=== PATIENT | male | born 1960 | race Caucasian/White ===

== ENCOUNTER 2018-06-16 08:23 | Day surgery (SDC) | payer BC ==
[~2018-06-16 08:23] MED LIST: Lactated Ringers 1,000 ML IV SCH; Lidocaine 1%/Sod Bicarbonate in NS 8.4% 1 ML Syringe IDERM PRN; Sodium Chloride 0.9% 10 ML Syringe FLUSH PRN
--- NOTE | 2018-06-16 09:14 | PCM.PREANE ---
Preanesthetic Assessment - Procedure Proposed Procedure: colonoscopy - Anesthesia/Transfusion/Family Hx Anesthesia History: Prior Anesthesia Without Reaction Family History of Anesthesia Reaction: No Transfusion History: No Prior Transfusion(s) - Review of Systems General: No Symptoms Pulmonary: No Symptoms Cardiovascular: No Symptoms Gastrointestinal: No Symptoms Neurological: No Symptoms Other: Reports: None - Physical Assessment NPO Status Date: 06/15/18 NPO Status Time: 00:00 Pulse: 70 O2 Sat by Pulse Oximetry: 94 Respiratory Rate: 16 Blood Pressure: 153/95 Temperature: 98.2 F Height: 5 ft 9 in Weight: 131 kg ASA Class: 2 Mental Status: Alert & Oriented x3 Airway Class: Mallampati = 1 Dentition: Reports: Normal Dentition, Partial (upper) Thyro-Mental Finger Breadths: 3 Mouth Opening Finger Breadths: 3 ROM/Head Extension: Full Lungs: Clear to Auscultation, Normal Respiratory Effort Cardiovascular: Regular Rate, Regular Rhythm - Allergies Allergies/Adverse Reactions: Allergies Allergy/AdvReac Type Severity Reaction Status Date / Time No Known Allergies Allergy Verified 06/15/18 10:29 - Blood Blood Available: No - Anesthesia Plan Beta Marcelina: Metoprolol Med Last Dose Date: 06/16/18 (n) Med Last Dose Time: 09:20 - Acknowledgements Anesthesia Type Planned: MAC Pt an Appropriate Candidate for the Planned Anesthesia: Yes Alternatives and Risks of Anesthesia Discussed w Pt/Guardian: Yes Pt/Guardian Understands and Agrees with Anesthesia Plan: Yes PreAnesthesia Questionnaire HEENT History: Reports: Otitis Media, Other (See Below) Other HEENT History: wears glasses, upper partial Cardiovascular History: Reports: CAD, High Cholesterol, Hypertension, Other ( See Below) Other Cardiovascular History: chest pain Respiratory History: Reports: None Gastrointestinal History: Reports: Colon Polyp, Gastritis, Other (See Below) Other Gastrointestinal History: hematuria, small bowel obstruction Genitourinary History: Reports: Other (See Below) Other Genitourinary History: erectile dysfunction [employer] History: Reports: None Musculoskeletal History: Reports: Other (See Below) Other Musculoskeletal History: rotator cuff tear, right foot toe fracutre, muscle weakness Neurological History: Reports: None Psychiatric History: Reports: Other (See Below) Other Psychiatric History: insomnia Endocrine/Metabolic History: Reports: Obesity/BMI 30+ Hematologic History: Reports: Iron Deficiency Immunologic History: Reports: None Oncologic (Cancer) History: Reports: None Dermatologic History: Reports: None - Past Surgical History Head Surgeries/Procedures: Reports: None Cardiovascular Surgical History: Reports: None Respiratory Surgical History: Reports: None GI Surgical History: Reports: Bariatric Procedure, Cholecystectomy, Colonoscopy , Hernia Repair/Other Female Surgical History: Reports: None Male Surgical History: Reports: None Endocrine Surgical History: Reports: None Neurological Surgical History: Reports: None Musculoskeletal Surgical History: Reports: Other (See Below) Other Musculoskeletal Surgeries/Procedures:: right hand surgery, right foot surgery Oncologic Surgical History: Reports: None Dermatological Surgical History: Reports: None - SUBSTANCE USE Smoking Status *Q: Former Smoker (quit a couple months ago) Tobacco Use Within Last Twelve Months: Cigarettes Second Hand Smoke Exposure: Yes Days Per Week of Alcohol Use: 1 Number of Drinks Per Day: 2 Total Drinks Per Week: 2 Recreational Drug Use History: No - HOME MEDS Home Medications: Home Meds Aspirin [[place] Aspirin] 81 mg PO DAILY 06/15/18 [History] Cholecalciferol (Vitamin D3) [Vitamin D3] 1,000 unit PO DAILY 06/15/18 [History] Ferrous Sulfate [Iron] 325 mg PO DAILY 06/15/18 [History] Lisinopril 40 mg PO DAILY 06/15/18 [History] Metoprolol Tartrate [Lopressor] 50 mg PO BID 06/15/18 [History] Potassium 99 mg PO DAILY 06/15/18 [History] Pravastatin [Pravachol] 40 mg PO DAILY 06/15/18 [History] Sildenafil Citrate [Sildenafil] 100 mg PO ASDIRECTED PRN 06/15/18 [History] Suvorexant [Belsomra] 20 mg PO BEDTIME 06/15/18 [History] Vitamin B Complex 1 cap PO DAILY 06/15/18 [History] amLODIPine Besylate [Norvasc] 5 mg PO DAILY 06/15/18 [History] - CURRENT (IN HOUSE) MEDS Current Meds: Current Medications Lactated Ringer's (Ringers, Lactated) 1,000 mls @ 125 mls/hr IV ASDIRECTED DAO Stop: 06/16/18 23:00 Lidocaine/Sodium Bicarbonate (Buffered Lidocaine 1% In Ns 8.4%) 0.25 ml IDERM ONETIME PRN PRN Reason: Prior to IV Start Stop: 06/16/18 18:00 Sodium Chloride (Saline Flush) 10 ml FLUSH ASDIRECTED PRN PRN Reason: Keep Vein Open Stop: 06/16/18 18:00
[2018-06-16] MEDS ORDERED: Metoprolol Tartrate 50 MG Tab PO SCH (09:45)
[2018-06-16] MEDS ORDERED: Propofol 200 MG/20 ML SDV ONE ×3 (09:58→10:48)
[2018-06-16] MEDS ORDERED: fentaNYL 100 MCG/2 ML SDV ONE (10:10)
[2018-06-16] MEDS ORDERED: Labetalol 100 MG/20 ML MDV ONE (10:29)
--- NOTE | 2018-06-16 11:09 | PCM.OPNOTE ---
- General Post-Op/Procedure Note Date of Surgery/Procedure: 06/16/18 Operative Procedure(s): surveillance colonoscopy with polypectomy Findings: Intraluminal lipoma in transverse colon Polyps in cecum, transverse colon and splenic flexure Scattered small-mouthed diverticula in the sigmoid, descending and transverse colon Pre Op Diagnosis: surveillance colonoscopy for hematochezia and colon polyps Post-Op Diagnosis: same Anesthesia Technique: MAC Primary Surgeon: Lissette Guajardo Anesthesia Provider: Jesus Jett Pathology: 1. Cecal biopsy 2. Cecal polyp 3. Transverse colon polyp 4. Splenic flexure polyp Drain/Tube Comments:: none Complications: none Condition: Good
--- NOTE | 2018-06-16 11:11 | PCM48HPAN ---
Post Anesthesia Note - EVALUATION WITHIN 48HRS OF ANESTHETIC Vital Signs in Normal Range: Yes Patient Participated in Evaluation: Yes Respiratory Function Stable: Yes Airway Patent: Yes Cardiovascular Function Stable: Yes Hydration Status Stable: Yes Pain Control Satisfactory: Yes Nausea and Vomiting Control Satisfactory: Yes Mental Status Recovered: Yes
--- NOTE | 2018-06-16 11:12 | PCM.PRNOTE ---
- Free Text/Narrative Note: Operative Report Date of Surgery/Procedure: june 16, 2018 Operative Procedure: surveillance Colonoscopy to cecum with polypectomy Pre Op Diagnosis: colorectal cancer screening with hematochezia and history of colon polyps Post-Op Diagnosis: same Surgeon: Lissette Guajardo MD Anesthesia Technique: MAC Anesthesia Provider: Jesus Jett CRNA IV Fluid Replacement, Intraop: see anesthesia record Output, Urine Amount: 0cc EBL : 2 cc Findings: Intraluminal lipoma in transverse colon; Polyps in cecum, transverse colon and splenic flexure; Scattered small-mouthed diverticula in the sigmoid, descending and transverse colon Specimens: 1. Cecal biopsy 2. Cecal polyp 3. Transverse colon polyp 4. Splenic flexure polyp Indication: The patient is a 58 year-old gentleman who presented to the outpatient clinic requesting colorectal cancer screening for surveillance of previous colon polyps , as well as a history of hematochezia. We discussed the procedure of a surveillance colonoscopy including the polypectomy and biopsy. Risks of bleeding and perforation were discussed, the patient understood and wished to proceed. Written and consent was obtained. Description of the procedure: The patient was brought to the endoscopy suite and placed in the left lateral decubitus position. Appropriate monitors were applied. The patient was given MAC anesthesia. An anorectal examination was performed, revealing external skin tags. The scope was placed into the rectum and advanced to cecum with minimal difficulty requiring some abdominal pressure. The patients cecum was seen, and the ileocecal valve was identified and normal, however the cecum could not be entered due to the patient's anatomy. At this point, the scope was withdrawn, paying careful attention to the mucosa. The patient had poor bowel prep, allowing for visualization of 60-65% of the mucosa. Several small-mouthed diverticula were seen scattered throughout the sigmoid, descending and transverse colon. There was a large, pedunculated, non-obstructing mass in the transverse colon with normal mucosa, consistent with a lipoma. There were scattered polyps in the cecum, transverse colon and splenic flexure. These were biopsied with cold-biopsy forceps. The cecal polyp was incompletely removed due to it's position, and another 4-5mm cecal polyp was noted that could not be removed due to it's location. In the rectum, the scope was retroflexed and no abnormalities were noted, except for some minimal hemorrhoidal tissue. The scope was placed back in the lumen and the excess air was aspirated. The patient tolerated the procedure well. Will await pathology for timing of repeat surveillance colonoscopy. Complications: none apparent Condition: Good, transported to PACU in stable condition Lissette Guajardo MD General Surgery
== END 2018-06-16 12:15 | disposition home or self-care (01) ==
LOC: JD.SDS 08:23
PROVIDERS: ATTEND Surgery
DX: Z12.11 Encounter for screening for malignant neoplasm of colon (principal); D12.0 Benign neoplasm of cecum; D12.3 Benign neoplasm of transverse colon; K64.9 Unspecified hemorrhoids; I10 Essential (primary) hypertension; I25.110 Atherosclerotic heart disease of native coronary artery with unstable angina pectoris; N52.9 Male erectile dysfunction, unspecified; F17.210 Nicotine dependence, cigarettes, uncomplicated; E66.9 Obesity, unspecified; Z68.41 Body mass index [BMI] 40.0-44.9, adult; Z79.899 Other long term (current) drug therapy; Z98.84 Bariatric surgery status; Z98.890 Other specified postprocedural states; Z86.010 Personal history of colon polyps
CPT/HCPCS: 45380; A9270; J2704; J3010; J3490; J7120; 00812

== ENCOUNTER 2020-03-17 07:13 | Emergency (ER) | payer BC ==
[2020-03-17] MEDS ORDERED: Diltiazem 50 MG/10 ML SDV IVPUSH ONE ×4 (07:23→08:59)
--- NOTE | 2020-03-17 07:26 | EDM.PDOC ---
ED HPI GENERAL MEDICAL PROBLEM - General Chief Complaint: Cardiovascular Problem Stated Complaint: IRREGULAR HEART BEAT Time Seen by Provider: 03/17/20 07:18 Source of Information: Reports: Patient History Limitations: Reports: No Limitations - History of Present Illness INITIAL COMMENTS - FREE TEXT/NARRATIVE: 59-year-old male presents to the ED from the ECG stress suite where he was being stressed by Dr. Orr. Apparently he did fairly good for the first 5 or 6 minutes. He then went into atrial fibrillation with rapid rapid ventricular response up to 155 160. Associated dyspnea and mild central chest heaviness. Erhard lightheaded and weak. Procedure was therefore stopped and he was sent to the ED for treatment. From the sounds of things he has been having similar type episodes with palpitations which suggest paroxysmal atrial fibrillation. Denies any changes in medications. Onset: Today Onset Date: 03/17/20 Onset Time: 07:15 Duration: Minutes: Location: Reports: Chest (New onset atrial fibrillation with rapid ventricular response.) Quality: Reports: Pressure (Very mild central pressure discomfort.) Severity: Mild Improves with: Reports: Rest Worsens with: Reports: Other Context: Reports: Other (Spontaneous onset of atrial fibrillation well in the ECG suite.). Denies: Activity (Worse with exercise), Exercise, Sick Contact, Trauma Associated Symptoms: Reports: Chest Pain, Malaise, Shortness of Breath, Weakness. Denies: Confusion, Cough, cough w sputum (Chest discomfort.), Diaphoresis, Fever/Chills, Headaches, Loss of Appetite, Nausea/Vomiting, Rash, Seizure, Syncope Treatments MOLDER PIPE COVERING: Reports: Other (see below) (Particular lower extremities none.) - Related Data Allergies Allergy/AdvReac Type Severity Reaction Status Date / Time No Known Allergies Allergy Verified 03/17/20 07:28 Home Meds: Home Meds Aspirin [Day Aspirin] 81 mg PO DAILY 06/15/18 [History] Lisinopril 40 mg PO DAILY 06/15/18 [History] Metoprolol Tartrate [Lopressor] 50 mg PO BID 06/15/18 [History] Potassium 99 mg PO DAILY 06/15/18 [History] Suvorexant [Belsomra] 20 mg PO BEDTIME 06/15/18 [History] amLODIPine Besylate [Norvasc] 10 mg PO DAILY 06/15/18 [History] Albuterol [Proventil HFA] 2 puff INH Q8HR 03/17/20 [History] Aspirin/Acetaminophen/Caffeine [Excedrin Extra Strength Caplet] 1 tab PO ASDIRECTED 03/17/20 [History] Cholecalciferol (Vitamin D3) [Vitamin D3] 1,000 unit PO DAILY 03/17/20 [History] Cyanocobalamin (Vitamin B-12) [B-12] 1,000 mcg PO DAILY 03/17/20 [History] Cyclobenzaprine [Flexeril] 10 mg PO TID PRN 03/17/20 [History] Diltiazem [Dilacor XR] 240 mg PO DAILY #30 cap.er 03/17/20 [Rx] Divalproex Sodium [Divalproex Sodium ER] 500 mg PO DAILY 03/17/20 [History] Ferrous Sulfate [Iron] 325 mg PO DAILY 03/17/20 [History] Fluticasone/Salmeterol [Advair 100-50] 1 puff INH BID 03/17/20 [History] Multivitamin 1 tab PO DAILY 03/17/20 [History] tadalafiL [Tadalafil] 2.5 mg PO DAILY 03/17/20 [History] Past Medical History HEENT History: Reports: Otitis Media, Other (See Below) Other HEENT History: wears glasses, upper partial Cardiovascular History: Reports: CAD, High Cholesterol, Hypertension, Other ( See Below) Other Cardiovascular History: chest pain Respiratory History: Reports: None Gastrointestinal History: Reports: Colon Polyp, Gastritis, Other (See Below) Other Gastrointestinal History: hematuria, small bowel obstruction Genitourinary History: Reports: Other (See Below) Other Genitourinary History: erectile dysfunction [employer] D[employer] OPERATOR History: Reports: None Musculoskeletal History: Reports: Other (See Below) Other Musculoskeletal History: rotator cuff tear, right foot toe fracutre, muscle weakness Neurological History: Reports: None Psychiatric History: Reports: Other (See Below) Other Psychiatric History: insomnia Endocrine/Metabolic History: Reports: Obesity/BMI 30+ Hematologic History: Reports: Iron Deficiency Immunologic History: Reports: None Oncologic (Cancer) History: Reports: None Dermatologic History: Reports: None - Past Surgical History Head Surgeries/Procedures: Reports: None Cardiovascular Surgical History: Reports: None Respiratory Surgical History: Reports: None GI Surgical History: Reports: Bariatric Procedure, Cholecystectomy, Colonoscopy , Hernia Repair/Other Female Surgical History: Reports: None Male Surgical History: Reports: None Endocrine Surgical History: Reports: None Neurological Surgical History: Reports: None Musculoskeletal Surgical History: Reports: Other (See Below) Other Musculoskeletal Surgeries/Procedures:: right hand surgery, right foot surgery Oncologic Surgical History: Reports: None Dermatological Surgical History: Reports: None Social & Family History - Caffeine Use Caffeine Use: Reports: Coffee - Living Situation & Occupation Living situation: Reports: Occupation: Employed ED ROS GENERAL - Review of Systems Review Of Systems: See Below Constitutional: Reports: Weakness. Denies: Fever, Chills HEENT: Reports: No Symptoms Respiratory: Reports: Shortness of Breath. Denies: Wheezing, Pleuritic Chest Pain, Cough, Sputum Cardiovascular: Reports: Chest Pain, Blood Pressure Problem (Mild chest heaviness central chest with onset of atrial fib.), Dyspnea on Exertion, Edema ( Chronically lower extremities. Gets better overnight and then worsens as the day goes on as he stands for 6 to 8 hours daily), Palpitations (Recurrent palpitations). Denies: Claudication, Lightheadedness, Orthopnea Endocrine: Reports: Fatigue. Denies: High Glucose GI/Abdominal: Reports: Abdominal Pain, Diarrhea, Other (Lots of problems since gastric bypass surgery.) : Reports: Frequency Musculoskeletal: Reports: Back Pain, Joint Pain (Knees hips low back neck and shoulders at times) Skin: Reports: No Symptoms Neurological: Reports: Dizziness Psychiatric: Reports: No Symptoms (Onset of atrial fib this morning) Hematologic/Lymphatic: Reports: No Symptoms Immunologic: Reports: No Symptoms ED EXAM, GENERAL - Physical Exam Exam: See Below Exam Limited By: No Limitations General Appearance: Alert, WD/WN, Moderate Distress, Other (Obviously short of breath. Temperature is 36.1 heart rate 150 and irregular irregular. Respiratory to is 20-22. O2 sats 91% on room air BP 1 6486) Eye Exam: Bilateral Eye: Normal Inspection, PERRL Throat/Mouth: Normal Inspection, Normal Lips, Normal Oropharynx, Other Head: Atraumatic, Normocephalic Neck: Normal Inspection (Lung is slightly dry.), Supple, Full Range of Motion. No: Carotid Bruit, Lymphadenopathy (L), Lymphadenopathy (R) Cardiovascular: No Gallop, No JVD, No Murmur, No Rub, Irregularly Irregular (55/ min on the monitor.). No: Normal Peripheral Pulses Peripheral Pulses: 1+: Posterior Tibial (L) (Only the dorsal dorsalis pedis is palpable.), Posterior Tibial (R), Dorsalis Pedis (L), Dorsalis Pedis (R), 2+: Carotid (L), Carotid (R) GI/Abdominal: Abnormal Bowel Sounds (Bowel sounds are fairly quiesced sent in all 4 quadrants.), Other (Multiple surgical scars. He has had a cholecystectomy as well as a gastric bypass procedure. Morbidly obese. Abdominal girth limits ability to palpate solid organs.) Extremities: Non-Tender, Pedal Edema, Slow Capillary Refill. No: Normal Inspection Neurological: Alert, Oriented, CN II-XII Intact, Normal Cognition Psychiatric: Anxious Skin Exam: Warm, Dry, Intact, Normal Color, No Rash ED CARDIOLOGY PROCEDURES - Cardioversion Time of Cardioversion: 11:09 Indication: Atrial Fibrillation with RVR Patient Counseled: Yes Informed Consent Obtained: Yes Preparation: IV Access, Airway Management Equipment, Supplemental Oxygen Pre-Procedure Sedation: Propofol (By TECHNICAL COMMUNICATION TEACHER.) Cardioversion Energy: 100J Sync, Other (This 100 J dose did not convert him. 150) Mode: Monophasic (dose did convert him back to sinus rhythm.) Successful: Yes Number of Attempts: 2 Patient Condition Post Cardioversion: Improved Post Cardioversion EKG Reviewed: Yes (Sinus rhythm. It does exist demonstrate that he has had old anteroseptal a) EKG INTERPRETATION EKG Date: 03/17/20 Time: 07:28 Rhythm: A-Fib (The rate of 150 to 165/min) Rate (Beats/Min): 159 Micro: LAD-Left Micro Deviation (-51 degrees. Left anterior fascicular block pattern) P-Wave: Variable QRS: Other (Near Q wave 3 and aVF consider inferior wall infarction. There is a Q wave in V1 and near Q wave in V3 which is likely insignificant.) ST-T: Other (Diffuse early repolarization pattern.) QT: Prolonged EKG Interpretation Comments: Abnormal ECG Course - Vital Signs Last Recorded V/S: Last Vital Signs Temp 36.1 C 03/17/20 07:25 Pulse 150 H 03/17/20 07:25 Resp 20 03/17/20 07:25 BP 164/86 H 03/17/20 07:25 Pulse Ox 91 L 03/17/20 07:25 - Orders/Labs/Meds Orders: Active Orders 24 hr Category Date Time Status EKG Documentation Completion [RC] STAT Care 03/17/20 07:25 Active EKG Documentation Completion [RC] STAT Care 03/17/20 12:12 Active Oxygen Therapy [RC] ASDIRECTED Care 03/17/20 07:32 Active Diltiazem [Cardizem] 100 mg Med 03/17/20 07:30 Active Sodium Chloride 0.9% [Normal Saline] 100 ml IV TITRATE Sodium Chloride 0.9% [Normal Saline] 1,000 ml Med 03/17/20 07:30 Active IV ASDIRECTED Medication Orders Diltiazem HCl 100 mg/ Sodium (Chloride) 100 mls @ 15 mls/hr IV TITRATE DAO; Protocol Last Titration: 03/17/20 08:15 Dose: 15 mg/hr, 15 mls/hr Admin: 03/17/20 07:45 Dose: 10 mg/hr, 10 mls/hr Sodium Chloride (Normal Saline) 1,000 mls @ 100 mls/hr IV ASDIRECTED DAO Last Admin: 03/17/20 07:40 Dose: 100 mls/hr Labs: Laboratory Tests 03/17/20 03/17/20 03/17/20 Range/Units 07:44 07:44 07:44 WBC 8.40 (4.23-9.07) K/mm3 RBC 5.22 (4.63-6.08) M/mm3 Hgb 15.4 (13.7-17.5) gm/dl Hct 46.7 (40.1-51.0) % MCV 89.5 (79.0-92.2) fl MCH 29.5 (25.7-32.2) pg MCHC 33.0 (32.2-35.5) g/dl RDW Std Deviation 45.6 H (35.1-43.9) fL Plt Count 175 (163-337) K/mm3 MPV 10.9 (9.4-12.3) fl Neut % (Auto) 75.3 H (34.0-67.9) % Lymph % (Auto) 14.4 L (21.8-53.1) % [place] % (Auto) 8.1 (5.3-12.2) % Eos % (Auto) 1.1 (0.8-7.0) Baso % (Auto) 0.4 (0.1-1.2) % Neut # (Auto) 6.33 H (1.78-5.38) K/mm3 Lymph # (Auto) 1.21 L (1.32-3.57) K/mm3 [place] # (Auto) 0.68 (0.30-0.82) K/mm3 Eos # (Auto) 0.09 (0.04-0.54) K/mm3 Baso # (Auto) 0.03 (0.01-0.08) K/mm3 PT 10.3 (9.7-12.0) SECONDS INR 0.94 APTT 23 (22-31) SECONDS Sodium 143 (136-145) mEq/L Potassium 4.0 (3.5-5.1) mEq/L Chloride 105 (98-107) mEq/L Carbon Dioxide 30 (21-32) mEq/L Anion Gap 12.0 (5-15) BUN 18 (7-18) mg/dL Creatinine 0.7 (0.7-1.3) mg/dL Est Cr Clr Drug Dosing 110.82 mL/min Estimated GFR (MDRD) > 60 (>60) mL/min BUN/Creatinine Ratio 25.7 H (14-18) Glucose 115 (80-115) mg/dL Calcium 8.7 (8.5-10.1) mg/dL Magnesium 2.0 (1.8-2.4) mg/dl Total Bilirubin 0.7 (0.2-1.0) mg/dL AST 27 (15-37) U/L ALT 37 (16-63) U/L Alkaline Phosphatase 108 (46-116) U/L CK-MB (CK-2) 1.0 (0-3.6) ng/ml Troponin I < 0.017 (0.00-0.056) ng/mL C-Reactive Protein < 0.2 (<1.0) mg/dL NT-Pro-B Natriuret Pep (0-125) pg/mL Total Protein 7.0 (6.4-8.2) g/dl Albumin 3.9 (3.4-5.0) g/dl Globulin 3.1 gm/dL Albumin/Globulin Ratio 1.3 (1-2) TSH 3rd Generation (0.358-3.74) uIU/mL Urine Color (Yellow) Urine Appearance (Clear) Urine pH (5.0-8.0) Ur Specific [place] (1.005-1.030) Urine Protein (Negative) Urine Glucose (UA) (Negative) Urine Ketones (Negative) Urine Occult Blood (Negative) Urine Nitrite (Negative) Urine Bilirubin (Negative) Urine Urobilinogen (0.2-1.0) Ur Leukocyte Esterase (Negative) Urine RBC (0-5) /hpf Urine WBC (0-5) /hpf Ur Squamous Epith Cells (0-5) /hpf Urine Bacteria (FEW) /hpf Urine Mucus (FEW) /hpf 03/17/20 03/17/20 03/17/20 Range/Units 07:44 07:44 09:00 WBC (4.23-9.07) K/mm3 RBC (4.63-6.08) M/mm3 Hgb (13.7-17.5) gm/dl Hct (40.1-51.0) % MCV (79.0-92.2) fl MCH (25.7-32.2) pg MCHC (32.2-35.5) g/dl RDW Std Deviation (35.1-43.9) fL Plt Count (163-337) K/mm3 MPV (9.4-12.3) fl Neut % (Auto) (34.0-67.9) % Lymph % (Auto) (21.8-53.1) % [place] % (Auto) (5.3-12.2) % Eos % (Auto) (0.8-7.0) Baso % (Auto) (0.1-1.2) % Neut # (Auto) (1.78-5.38) K/mm3 Lymph # (Auto) (1.32-3.57) K/mm3 [place] # (Auto) (0.30-0.82) K/mm3 Eos # (Auto) (0.04-0.54) K/mm3 Baso # (Auto) (0.01-0.08) K/mm3 PT (9.7-12.0) SECONDS INR APTT (22-31) SECONDS Sodium (136-145) mEq/L Potassium (3.5-5.1) mEq/L Chloride (98-107) mEq/L Carbon Dioxide (21-32) mEq/L Anion Gap (5-15) BUN (7-18) mg/dL Creatinine (0.7-1.3) mg/dL Est Cr Clr Drug Dosing mL/min Estimated GFR (MDRD) (>60) mL/min BUN/Creatinine Ratio (14-18) Glucose (80-115) mg/dL Calcium (8.5-10.1) mg/dL Magnesium (1.8-2.4) mg/dl Total Bilirubin (0.2-1.0) mg/dL AST (15-37) U/L ALT (16-63) U/L Alkaline Phosphatase (46-116) U/L CK-MB (CK-2) (0-3.6) ng/ml Troponin I (0.00-0.056) ng/mL C-Reactive Protein (<1.0) mg/dL NT-Pro-B Natriuret Pep 134 H (0-125) pg/mL Total Protein (6.4-8.2) g/dl Albumin (3.4-5.0) g/dl Globulin gm/dL Albumin/Globulin Ratio (1-2) TSH 3rd Generation 1.505 (0.358-3.74) uIU/mL Urine Color Yellow (Yellow) Urine Appearance Clear (Clear) Urine pH 7.0 (5.0-8.0) Ur Specific [place] 1.015 (1.005-1.030) Urine Protein Negative (Negative) Urine Glucose (UA) Negative (Negative) Urine Ketones Negative (Negative) Urine Occult Blood Negative (Negative) Urine Nitrite Negative (Negative) Urine Bilirubin Negative (Negative) Urine Urobilinogen 1.0 (0.2-1.0) Ur Leukocyte Esterase Negative (Negative) Urine RBC Not seen (0-5) /hpf Urine WBC Not seen (0-5) /hpf Ur Squamous Epith Cells Not seen (0-5) /hpf Urine Bacteria Not seen (FEW) /hpf Urine Mucus Not seen (FEW) /hpf Meds: Medications Generic Name Dose Route Start Last Admin Trade Name Freq PRN Reason Stop Dose Admin Diltiazem HCl 100 mg/ Sodium 100 mls @ 15 mls/hr 03/17/20 07:30 03/17/20 08: 15 Chloride IV 15 mg/hr TITRATE DAO 15 mls/hr Titration Protocol 15 MG/HR Sodium Chloride 1,000 mls @ 100 mls/hr 03/17/20 07:30 03/17/20 07:40 Normal Saline IV 100 mls/hr ASDIRECTED DAO Administration Discontinued Medications Generic Name Dose Route Start Last Admin Trade Name Mag PRN Reason Stop Dose Admin Diltiazem HCl 10 mg 03/17/20 07:23 03/17/20 07:40 Cardizem IVPUSH 03/17/20 07:24 10 mg ONETIME ONE Administration Diltiazem HCl 15 mg 03/17/20 07:53 03/17/20 08:22 Cardizem IVPUSH 03/17/20 07:54 15 mg ONETIME ONE Administration Diltiazem HCl 15 mg 03/17/20 08:31 03/17/20 09:00 Cardizem IVPUSH 03/17/20 08:32 15 mg ONETIME ONE Administration Diltiazem HCl 20 mg 03/17/20 08:59 03/17/20 09:39 Cardizem IVPUSH 03/17/20 09:00 20 mg ONETIME ONE Administration Diltiazem HCl 240 mg 03/17/20 11:14 03/17/20 11:45 Dilacor Xr PO 03/17/20 11:15 240 mg ONETIME ONE Administration Furosemide 40 mg 03/17/20 08:02 03/17/20 08:48 Lasix IVPUSH 03/17/20 08:03 40 mg NOW ONE Administration Lidocaine HCl Confirm 03/17/20 10:49 Xylocaine-Mpf 1% Administered 03/17/20 10:50 Dose 4 mls @ as directed .ROUTE .STK-MED ONE Midazolam HCl Confirm 03/17/20 10:50 Versed 1 Mg/Ml Administered 03/17/20 10:51 Dose 2 mg .ROUTE .STK-MED ONE Propofol Confirm 03/17/20 10:49 Diprivan 20 Ml Administered 03/17/20 10:50 Dose 400 mg .ROUTE .STK-MED ONE - Radiology Interpretation Free Text/Narrative:: 59-year-old male presents to the ED after developing atrial fibrillation with rapid ventricular response while in the ECG testing suite. Is unclear how far along he was in his testing protocol. Apparently he has been given a dose of Lexiscan. Patient cannot recall this however. His symptoms are that of mild central chest pressure discomfort lightheadedness dizziness and weakness particularly in his lower extremities with associated shortness of breath. He states he is been having intermittent similar symptoms for the last several months. He denies being diabetic. He is morbidly obese. She had previous gastric bypass surgery with lots of complications. Denies any changes in his medications recently. Exam reveals him to be in atrial fibrillation between 150 and 165/min. Plan Cardizem 10 mg IV bolus and then 10 mg an hour. He has a new numerous other blood pressure medications. 1 of these is metoprolol 50 mg extended release daily. He will have routine labs performed and ECG. - Re-Assessments/Exams Free Text/Narrative Re-Assessment/Exam: 03/17/20 08:02 Portable chest x-ray reveals moderate cardiomegaly with diffuse significant vascular congestion . Is still up in the 140s. He will be given a repeat dose of diltiazem 15 mg IV. Give Lasix 40 mg IV. 03/17/20 08:12 heart rate remains in the 150s. Will crease Cardizem drip to 15 mg/h. 03/17/20 08:27 current heart rate is between 112 and 130/min. BP is 151/73. 03/17/20 08:31 heart rate still travels intermittently up into the 140s. Will repeat Cardizem 15 mg IV.Hematology reveals a normal white count at 8.40. The auto differential shows 75% neutrophils. Hemoglobin is 15.4 with hematocrit of 46.7. Platelet count is 175,000. 03/17/20 09:00 heart rate remains anywhere from 100 to 140/min. Slowly regaining control of his rate. BP is 137/81. I am going to repeat Cardizem 20 mg IV. 03/17/20 09:13 PT is 10.3 with an INR of 0.94. PTT is 23. Sodium is 143 with a potassium of 4.0. Chloride 105 with a bicarb of 30. Anion gap is 12.0. BUN is 18 with a creatinine of 0.7. GFR is greater than 60. Glucose 115 with a calcium of 8.7. Magnesium is 2.0. Liver function is normal. CK-MB fraction is 1.0 with a troponin I of less than 0.017. C-reactive protein is less than 0.2. BNP is 134. Total protein is 7.0 with an albumin fraction of 3.9. TSH is 1.5 which is normal. Heart rate is currently atrial fibrillation at 98/min. BP is 132/68. O2 sats remain 90%. Is unclear to me if he has been placed on oxygen as ordered. Post to be on 2 L/min. 03/17/20 09:46 rate is currently in the 80s. BP 112/77. 02 sats remain 93% on 2 L. Discussed case with on-call hospitalist Dr. aWtson with a view to admission to the intensive care unit for atrial fibrillation control He could be cardioverted since we know that he is new onset since this morning. Apparently he is supposed to be back your tomorrow morning at 0800 hrs. to complete his Lexiscan component of his stress testing. This is due to his large size. 03/17/20 09:59 cussed the case with Dr. Watson on-call hospitalist and he states that he does not perform cardioversion procedures. I therefore had a lengthy discussion with the patient about the benefits of cardioversion since we know he went into new onset atrial fibrillation this morning. This would help him avoid the need for anticoagulants. He has agreed to this procedure. I will call TECHNICAL COMMUNICATION TEACHER to see if we can get propofol given intravenously while I performed this procedure. 03/17/20 11:13 the eversion performed under conscious sedation with TECHNICAL COMMUNICATION TEACHER providing propofol for the procedure. Patient required to synchronized cardioversion doses. First 1 was 100 J the second was it was 150 J which converted him back to sinus rhythm at 86/min. He kept on Cardizem drip for half an hour or so and then it would be discontinued. I will give him a tablet when she is able to swallow of Cardizem orally. 03/17/20 11:47 and is alert and recovered from his sedation. He remains in sinus rhythm at 63/min. BP is 102/64. We will discontinue his Cardizem drip shortly. Given Cardizem to 40 mg extended release tablet by mouth. 03/17/20 12:51 as heart rate has remained stable in the 80s. BP is 125/82. He feels much improved. He will be started on Cardizem to 40 mg extended release tablet once daily to try and maintain heart rate control from paroxysmal atrial fibrillation. I did a repeat ECG and it is definitely abnormal. He has evidence of Q waves from V1 to V5 suggesting an old anterior septal myocardial infarction as well as near Q waves 2 3 and aVF suggesting an old inferior wall myocardial infarction. There are occasional PVCs. He definitely needs a cardiac work-up and likely angiography. Will take his metoprolol at bedtime and his Cardizem in the morning. He will be returning to the radiology department tomorrow at 0800 hrs. to complete his Lexiscan study. Departure - Departure Time of Disposition: 12:52 Disposition: Home, Self-Care 01 Reason for Transfer *Q: Other Condition: Fair Clinical Impression: New onset atrial fibrillation, Palpitations Prescriptions: Diltiazem [Dilacor XR] 240 mg PO DAILY #30 cap.er Instructions: Palpitations, [id number], Atrial Fibrillation, [id number] Referrals: Becki Blanco MD [Primary Care Provider] - Forms: ED Department Discharge Additional Instructions: Evaluation in the emergency room to day at the request of Dr. Orr, who was performing your ECG stress test in the radiology department this morning. At some point time he went into rapid irregular heart rate called atrial fibrillation up to 165/min. You were therefore transferred to the emergency department for definitive management and treatment. Rate control was gained with large doses of Cardizem intravenously proved still difficult to maintain adequate heart rate control. It was getting to the point that the medication was going to cause your blood pressure to go too low. Therefore after discussion with you we proceeded with cardioversion which is electricity used to convert the heart back to sinus rhythm or regular rhythm. It took 2 shocks but it did the trick and you have remained in regular sinus rhythm since that time in the 80s. You were given your first dose of Cartia zyme tablet 240 mg extended release in the ED and you will need to start medication on a daily basis every morning to try and prevent a heart from going back into atrial fibrillation. Her metoprolol tablet at bedtime. You need to return to the radiology department tomorrow morning for the next part of your Lexiscan study which is part of your ECG testing protocol. If you develop any further irregular heartbeats or rapid irregular heartbeat return to the ED. Sepsis Event Note - Focused Exam Vital Signs: Vital Signs Temp Pulse Resp BP Pulse Ox 03/17/20 07:25 36.1 C 150 H 20 164/86 H 91 L Date Exam was Performed: 03/17/20 Time Exam was Performed: 13:06 - My Orders Last 24 Hours: My Active Orders 03/17/20 07:25 EKG Documentation Completion [RC] STAT 03/17/20 07:30 Diltiazem [Cardizem] 100 mg Sodium Chloride 0.9% [Normal Saline] 100 ml IV TITRATE Sodium Chloride 0.9% [Normal Saline] 1,000 ml IV ASDIRECTED 03/17/20 07:32 Oxygen Therapy [RC] ASDIRECTED 03/17/20 12:12 EKG Documentation Completion [RC] STAT - Assessment/Plan Last 24 Hours: My Active Orders 03/17/20 07:25 EKG Documentation Completion [RC] STAT 03/17/20 07:30 Diltiazem [Cardizem] 100 mg Sodium Chloride 0.9% [Normal Saline] 100 ml IV TITRATE Sodium Chloride 0.9% [Normal Saline] 1,000 ml IV ASDIRECTED 03/17/20 07:32 Oxygen Therapy [RC] ASDIRECTED 03/17/20 12:12 EKG Documentation Completion [RC] STAT
[2020-03-17] MEDS ORDERED: Diltiazem 100 MG in Sodium Chloride 0.9% 100 ML IV SCH (07:30)
[2020-03-17] MEDS ORDERED: Sodium Chloride 0.9% 1,000 ML IV SCH (07:30)
--- NOTE | 2020-03-17 08:00 | CR ---
Chest: Portable view of the chest was obtained. Comparison: No prior chest imaging is available. Findings: Heart size is felt to be at the upper limits of normal. Pulmonary vessels may be minimally congested. Lungs otherwise are clear. Bony structures are grossly intact. Impression: 1. Possible minimal pulmonary vascular congestion. Diagnostic code #3 This report was dictated in MDT
[2020-03-17] MEDS ORDERED: Furosemide 40 MG/4 ML VIAL IVPUSH ONE (08:02)
--- NOTE | 2020-03-17 10:39 | PCM.PREANE ---
Preanesthetic Assessment - Procedure Proposed Procedure: Cardioversion - Anesthesia/Transfusion/Family Hx Anesthesia History: Prior Anesthesia Without Reaction Transfusion History: No Prior Transfusion(s) - Review of Systems General: No Symptoms Pulmonary: Shortness of Breath Cardiovascular: Palpitations Gastrointestinal: No Symptoms Neurological: No Symptoms Other: Reports: None - Physical Assessment NPO Status Date: 03/16/20 NPO Status Time: 21:00 Vital Signs: Last Vital Signs Temp 96.9 F 03/17/20 07:25 Pulse 150 H 03/17/20 07:25 Resp 20 03/17/20 07:25 BP 164/86 H 03/17/20 07:25 Pulse Ox 91 L 03/17/20 07:25 Height: 1.75 m Weight: 154.221 kg ASA Class: 3 Mental Status: Alert & Oriented x3 Airway Class: Mallampati = 3 Dentition: Reports: Dentures (upper partial) Thyro-Mental Finger Breadths: 3 Mouth Opening Finger Breadths: 3 ROM/Head Extension: Limited/Partial Lungs: Decreased Breath Sounds Cardiovascular: Irregular Rhythm, Tachycardia - Lab Values: Laboratory Last Values WBC 8.40 K/mm3 (4.23-9.07) 03/17/20 07:44 RBC 5.22 M/mm3 (4.63-6.08) 03/17/20 07:44 Hgb 15.4 gm/dl (13.7-17.5) 03/17/20 07:44 Hct 46.7 % (40.1-51.0) 03/17/20 07:44 MCV 89.5 fl (79.0-92.2) 03/17/20 07:44 MCH 29.5 pg (25.7-32.2) 03/17/20 07:44 MCHC 33.0 g/dl (32.2-35.5) 03/17/20 07:44 RDW Std Deviation 45.6 fL (35.1-43.9) H 03/17/20 07:44 Plt Count 175 K/mm3 (163-337) 03/17/20 07:44 MPV 10.9 fl (9.4-12.3) 03/17/20 07:44 Neut % (Auto) 75.3 % (34.0-67.9) H 03/17/20 07:44 Lymph % (Auto) 14.4 % (21.8-53.1) L 03/17/20 07:44 [place] % (Auto) 8.1 % (5.3-12.2) 03/17/20 07:44 Eos % (Auto) 1.1 (0.8-7.0) 03/17/20 07:44 Baso % (Auto) 0.4 % (0.1-1.2) 03/17/20 07:44 Neut # (Auto) 6.33 K/mm3 (1.78-5.38) H 03/17/20 07:44 Lymph # (Auto) 1.21 K/mm3 (1.32-3.57) L 03/17/20 07:44 [place] # (Auto) 0.68 K/mm3 (0.30-0.82) 03/17/20 07:44 Eos # (Auto) 0.09 K/mm3 (0.04-0.54) 03/17/20 07:44 Baso # (Auto) 0.03 K/mm3 (0.01-0.08) 03/17/20 07:44 PT 10.3 SECONDS (9.7-12.0) 03/17/20 07:44 INR 0.94 03/17/20 07:44 APTT 23 SECONDS (22-31) 03/17/20 07:44 Sodium 143 mEq/L (136-145) 03/17/20 07:44 Potassium 4.0 mEq/L (3.5-5.1) 03/17/20 07:44 Chloride 105 mEq/L (98-107) 03/17/20 07:44 Carbon Dioxide 30 mEq/L (21-32) 03/17/20 07:44 Anion Gap 12.0 (5-15) 03/17/20 07:44 BUN 18 mg/dL (7-18) 03/17/20 07:44 Creatinine 0.7 mg/dL (0.7-1.3) 03/17/20 07:44 Est Cr Clr Drug Dosing 110.82 mL/min 03/17/20 07:44 Estimated GFR (MDRD) > 60 mL/min (>60) 03/17/20 07:44 BUN/Creatinine Ratio 25.7 (14-18) H 03/17/20 07:44 Glucose 115 mg/dL (80-115) 03/17/20 07:44 Calcium 8.7 mg/dL (8.5-10.1) 03/17/20 07:44 Magnesium 2.0 mg/dl (1.8-2.4) 03/17/20 07:44 Total Bilirubin 0.7 mg/dL (0.2-1.0) 03/17/20 07:44 AST 27 U/L (15-37) 03/17/20 07:44 ALT 37 U/L (16-63) 03/17/20 07:44 Alkaline Phosphatase 108 U/L (46-116) 03/17/20 07:44 CK-MB (CK-2) 1.0 ng/ml (0-3.6) 03/17/20 07:44 Troponin I < 0.017 ng/mL (0.00-0.056) 03/17/20 07:44 C-Reactive Protein < 0.2 mg/dL (<1.0) 03/17/20 07:44 NT-Pro-B Natriuret Pep 134 pg/mL (0-125) H 03/17/20 07:44 Total Protein 7.0 g/dl (6.4-8.2) 03/17/20 07:44 Albumin 3.9 g/dl (3.4-5.0) 03/17/20 07:44 Globulin 3.1 gm/dL 03/17/20 07:44 Albumin/Globulin Ratio 1.3 (1-2) 03/17/20 07:44 TSH 3rd Generation 1.505 uIU/mL (0.358-3.74) 03/17/20 07:44 Urine Color Yellow (Yellow) 03/17/20 09:00 Urine Appearance Clear (Clear) 03/17/20 09:00 Urine pH 7.0 (5.0-8.0) 03/17/20 09:00 Ur Specific [place] 1.015 (1.005-1.030) 03/17/20 09:00 Urine Protein Negative (Negative) 03/17/20 09:00 Urine Glucose (UA) Negative (Negative) 03/17/20 09:00 Urine Ketones Negative (Negative) 03/17/20 09:00 Urine Occult Blood Negative (Negative) 03/17/20 09:00 Urine Nitrite Negative (Negative) 03/17/20 09:00 Urine Bilirubin Negative (Negative) 03/17/20 09:00 Urine Urobilinogen 1.0 (0.2-1.0) 03/17/20 09:00 Ur Leukocyte Esterase Negative (Negative) 03/17/20 09:00 Urine RBC Not seen /hpf (0-5) 03/17/20 09:00 Urine WBC Not seen /hpf (0-5) 03/17/20 09:00 Ur Squamous Epith Cells Not seen /hpf (0-5) 03/17/20 09:00 Urine Bacteria Not seen /hpf (FEW) 03/17/20 09:00 Urine Mucus Not seen /hpf (FEW) 03/17/20 09:00 - Allergies Allergies/Adverse Reactions: Allergies Allergy/AdvReac Type Severity Reaction Status Date / Time No Known Allergies Allergy Verified 03/17/20 07:28 - Acknowledgements Anesthesia Type Planned: MAC Pt an Appropriate Candidate for the Planned Anesthesia: Yes Alternatives and Risks of Anesthesia Discussed w Pt/Guardian: Yes Pt/Guardian Understands and Agrees with Anesthesia Plan: Yes PreAnesthesia Questionnaire HEENT History: Reports: Otitis Media, Other (See Below) Other HEENT History: wears glasses, upper partial Cardiovascular History: Reports: CAD, High Cholesterol, Hypertension, Other ( See Below) Other Cardiovascular History: chest pain Respiratory History: Reports: Other (See Below) (s/p tracheostomy) Gastrointestinal History: Reports: Colon Polyp, Gastritis, Other (See Below) Other Gastrointestinal History: hematuria, small bowel obstruction Genitourinary History: Reports: Other (See Below) Other Genitourinary History: erectile dysfunction [employer] History: Reports: None Musculoskeletal History: Reports: Other (See Below) Other Musculoskeletal History: rotator cuff tear, right foot toe fracutre, muscle weakness Neurological History: Reports: None Psychiatric History: Reports: Other (See Below) Other Psychiatric History: insomnia Endocrine/Metabolic History: Reports: Obesity/BMI 30+ (super-obese) Hematologic History: Reports: Iron Deficiency Immunologic History: Reports: None Oncologic (Cancer) History: Reports: None Dermatologic History: Reports: None - Past Surgical History GI Surgical History: Reports: Bariatric Procedure, Cholecystectomy, Colonoscopy , Hernia Repair/Other Musculoskeletal Surgical History: Reports: Other (See Below) Other Musculoskeletal Surgeries/Procedures:: right hand surgery, right foot surgery - SUBSTANCE USE Smoking Status *Q: Former Smoker Recreational Drug Use History: No - HOME MEDS Home Medications: Home Meds Aspirin [[place] Aspirin] 81 mg PO DAILY 06/15/18 [History] Lisinopril 40 mg PO DAILY 06/15/18 [History] Metoprolol Tartrate [Lopressor] 50 mg PO BID 06/15/18 [History] Potassium 99 mg PO DAILY 06/15/18 [History] Suvorexant [Belsomra] 20 mg PO BEDTIME 06/15/18 [History] amLODIPine Besylate [Norvasc] 10 mg PO DAILY 06/15/18 [History] Albuterol [Proventil HFA] 2 puff INH Q8HR 03/17/20 [History] Aspirin/Acetaminophen/Caffeine [Excedrin Extra Strength Caplet] 1 tab PO ASDIRECTED 03/17/20 [History] Cholecalciferol (Vitamin D3) [Vitamin D3] 1,000 unit PO DAILY 03/17/20 [History] Cyanocobalamin (Vitamin B-12) [B-12] 1,000 mcg PO DAILY 03/17/20 [History] Cyclobenzaprine [Flexeril] 10 mg PO TID PRN 03/17/20 [History] Divalproex Sodium [Divalproex Sodium ER] 500 mg PO DAILY 03/17/20 [History] Ferrous Sulfate [Iron] 325 mg PO DAILY 03/17/20 [History] Fluticasone/Salmeterol [Advair 100-50] 1 puff INH BID 03/17/20 [History] Multivitamin 1 tab PO DAILY 03/17/20 [History] tadalafiL [Tadalafil] 2.5 mg PO DAILY 03/17/20 [History] - CURRENT (IN HOUSE) MEDS Current Meds: Current Medications Diltiazem HCl 100 mg/ Sodium (Chloride) 100 mls @ 15 mls/hr IV TITRATE DAO; Protocol Last Titration: 03/17/20 08:15 Dose: 15 mg/hr, 15 mls/hr Sodium Chloride (Normal Saline) 1,000 mls @ 100 mls/hr IV ASDIRECTED DAO Last Admin: 03/17/20 07:40 Dose: 100 mls/hr Discontinued Medications Diltiazem HCl (Cardizem) 10 mg IVPUSH ONETIME ONE Stop: 03/17/20 07:24 Last Admin: 03/17/20 07:40 Dose: 10 mg Diltiazem HCl (Cardizem) 15 mg IVPUSH ONETIME ONE Stop: 03/17/20 07:54 Last Admin: 03/17/20 08:22 Dose: 15 mg Diltiazem HCl (Cardizem) 15 mg IVPUSH ONETIME ONE Stop: 03/17/20 08:32 Last Admin: 03/17/20 09:00 Dose: 15 mg Diltiazem HCl (Cardizem) 20 mg IVPUSH ONETIME ONE Stop: 03/17/20 09:00 Last Admin: 03/17/20 09:39 Dose: 20 mg Furosemide (Lasix) 40 mg IVPUSH NOW ONE Stop: 03/17/20 08:03 Last Admin: 03/17/20 08:48 Dose: 40 mg
[2020-03-17] MEDS ORDERED: Propofol 200 MG/20 ML SDV ONE (10:49)
[2020-03-17] MEDS ORDERED: Lidocaine 1% 4 ML ONE (10:49)
[2020-03-17] MEDS ORDERED: Midazolam 1 MG/ML 2 ML SDV ONE (10:50)
[2020-03-17] MEDS ORDERED: Diltiazem 240 MG Cap.ER PO ONE (11:14)
== END 2020-03-17 13:08 | disposition home or self-care (01) ==
LOC: JD.ED 07:13
DX: I48.91 Unspecified atrial fibrillation (principal); R00.2 Palpitations; I25.10 Atherosclerotic heart disease of native coronary artery without angina pectoris; I10 Essential (primary) hypertension; E66.9 Obesity, unspecified; Z68.43 Body mass index [BMI] 50.0-59.9, adult; Z79.82 Long term (current) use of aspirin; Z79.899 Other long term (current) drug therapy
CPT/HCPCS: 36415; 71045; 80053; 81001; 82553; 83735; 83880; 84443; 84484; 85025; 85610; 85730; 86140; 92960; 93005; 96361; 96365; 96366; 96375; 96376; 99285; A9270; J1940; J2001; J2250; J2704; J3490; J7030; J7050; 00410; 93010

== ENCOUNTER 2021-11-25 07:34 | Day surgery (SDC) | payer BC ==
[~2021-11-25 07:34] MED LIST changes: +Lidocaine 1% 30 ML SDV ONE; +Sodium Chloride 0.9% 10 ML Syringe FLUSH SCH
[2021-11-25] MEDS ORDERED: Ondansetron 4 MG/2 ML SDV ONE (07:45)
[2021-11-25] MEDS ORDERED: ceFAZolin 1 GM Vial ONE (07:45)
[2021-11-25] MEDS ORDERED: Lactated Ringers 1,000 ML ONE (07:45)
[2021-11-25] MEDS ORDERED: Lidocaine 1% 6 ML ONE (07:45)
[2021-11-25] MEDS ORDERED: ePHEDrine 50 MG/ML SDV ONE (07:45)
[2021-11-25] MEDS ORDERED: Propofol 200 MG/20 ML SDV ONE ×2 (07:46→10:08)
[2021-11-25] MEDS ORDERED: fentaNYL 100 MCG/2 ML SDV ONE (07:46)
[2021-11-25] MEDS ORDERED: Ketamine 500 mg/10 ML MDV ONE (07:46)
[2021-11-25] MEDS ORDERED: Midazolam 1 MG/ML 2 ML SDV ONE (07:46)
[2021-11-25] MEDS ORDERED: Albuterol 0.083% 2.5 MG/3 ML Neb Soln NEB PRN ×2 (08:03→09:45)
[2021-11-25] MEDS: Bupivacaine 0.5% 30 ML SDV ONE ×2 (09:15→10:35)
[2021-11-25] MEDS ORDERED: Ondansetron 4 MG/2 ML SDV IVPUSH PRN (09:45)
[2021-11-25] MEDS ORDERED: Midazolam 1 MG/ML 2 ML SDV IVPUSH PRN (09:45)
[2021-11-25] MEDS ORDERED: diphenhydrAMINE 50 MG/ML SDV IVPUSH PRN (09:45)
[2021-11-25] MEDS ORDERED: ePHEDrine 50 MG/ML SDV IVPUSH PRN (09:45)
[2021-11-25] MEDS ORDERED: fentaNYL 100 MCG/2 ML SDV IVPUSH PRN (09:45)
[2021-11-25] MEDS ORDERED: HYDROmorphone 0.5 MG/0.5 ML Syringe IVPUSH PRN (09:45)
== END 2021-11-25 11:49 | disposition home or self-care (01) ==
LOC: JD.SDS 07:34
PROVIDERS: ATTEND Podiatrist Foot & Ankle Surgery
DX: M20.11 Hallux valgus (acquired), right foot (principal); M20.41 Other hammer toe(s) (acquired), right foot; I25.10 Atherosclerotic heart disease of native coronary artery without angina pectoris; I11.0 Hypertensive heart disease with heart failure; I50.32 Chronic diastolic (congestive) heart failure; E78.00 Pure hypercholesterolemia, unspecified; G47.33 Obstructive sleep apnea (adult) (pediatric); D50.9 Iron deficiency anemia, unspecified; N40.1 Benign prostatic hyperplasia with lower urinary tract symptoms; G89.29 Other chronic pain; M54.41 Lumbago with sciatica, right side; M54.42 Lumbago with sciatica, left side; F33.1 Major depressive disorder, recurrent, moderate; Z79.899 Other long term (current) drug therapy; J44.9 Chronic obstructive pulmonary disease, unspecified; E66.9 Obesity, unspecified
CPT/HCPCS: 28285; 28292; 76000; J0690; J2250; J2370; J2405; J2704; J3010; J3490; J7120

== ENCOUNTER 2022-02-01 09:02 | Day surgery (SDC) | payer BC ==
[~2022-02-01 09:02] MED LIST changes: +Acetaminophen 325 MG Tab PO SCH; -Lidocaine 1% 30 ML SDV ONE; +Pregabalin 25 MG Cap PO SCH; +oxyCODONE ER 10 MG TAB.ER PO SCH
[2022-02-01] MEDS ORDERED: Lidocaine 1% 5 ML VIAL ONE (10:03)
[2022-02-01] MEDS ORDERED: Propofol 200 MG/20 ML SDV ONE ×3 (10:04→11:08)
[2022-02-01] MEDS ORDERED: Midazolam 1 MG/ML 2 ML SDV ONE ×2 (10:04→10:53)
[2022-02-01] MEDS ORDERED: ePHEDrine 50 MG/ML SDV ONE (10:59)
[2022-02-01] MEDS ORDERED: Ondansetron 4 MG/2 ML SDV ONE (11:00)
[2022-02-01] MEDS: Vancomycin 1 GM SDV ONE ×2 (11:28→11:50)
[2022-02-01] MEDS: Morphine 8 MG, EPINEPHrine 0.3 MG, Cefuroxime 750 MG, Ketorolac 30 MG, Sodium Chloride ... PRN ×10 (11:28→11:43)
[2022-02-01] MEDS: Bupivacaine 0.25% 10 ML SDV ONE ×2 (11:28→12:04)
[2022-02-01] MEDS ORDERED: Sodium Chloride 0.9% 100 ML ONE (11:29)
[2022-02-01] MEDS: Triamcinolone Acetonide 40 MG/ML 1 ML SDV ONE ×2 (11:29→12:04)
[2022-02-01] MEDS ORDERED: Phenylephrine 1% 10 MG/ML SDV ONE (11:29)
[2022-02-01] MEDS ORDERED: ceFAZolin 1 GM Vial ONE (11:48)
[2022-02-01] MEDS ORDERED: oxyCODONE 5 MG Tab PO ONE (12:02)
[2022-02-01] MEDS ORDERED: HYDROmorphone 0.5 MG/0.5 ML Syringe IVPUSH PRN (12:17)
[2022-02-01] MEDS ORDERED: fentaNYL 100 MCG/2 ML SDV IVPUSH PRN (12:17)
[2022-02-01] MEDS ORDERED: Ondansetron 4 MG/2 ML SDV IVPUSH PRN (12:17)
[2022-02-01] MEDS ORDERED: Ropivacaine 0.5% 5 MG/ML 30 ML SDV ONE (12:22)
== END 2022-02-01 16:45 | disposition home or self-care (01) ==
LOC: JD.SDS 09:02
PROVIDERS: ATTEND Orthopaedic Surgery
DX: M17.0 Bilateral primary osteoarthritis of knee (principal); I11.0 Hypertensive heart disease with heart failure; I50.32 Chronic diastolic (congestive) heart failure; I25.110 Atherosclerotic heart disease of native coronary artery with unstable angina pectoris; N40.1 Benign prostatic hyperplasia with lower urinary tract symptoms; F41.9 Anxiety disorder, unspecified; E78.00 Pure hypercholesterolemia, unspecified; F32.A Depression, unspecified; G47.33 Obstructive sleep apnea (adult) (pediatric); R73.9 Hyperglycemia, unspecified; I48.91 Unspecified atrial fibrillation; H54.7 Unspecified visual loss; D50.9 Iron deficiency anemia, unspecified; G89.29 Other chronic pain; J44.9 Chronic obstructive pulmonary disease, unspecified; E66.01 Morbid (severe) obesity due to excess calories; M54.42 Lumbago with sciatica, left side; M54.41 Lumbago with sciatica, right side; Z68.30 Body mass index [BMI] 30.0-30.9, adult; Z98.84 Bariatric surgery status; Z79.82 Long term (current) use of aspirin; Z79.899 Other long term (current) drug therapy; Z98.890 Other specified postprocedural states; Z87.891 Personal history of nicotine dependence; Z95.5 Presence of coronary angioplasty implant and graft
CPT/HCPCS: 0055T; 20610; 27447; 73560; 97110; 97116; 97161; A9270; C1713; C1776; J0171; J0690; J0697; J1885; J2250; J2270; J2370; J2405; J2704; J2795; J3301; J3370; J3490; J7120; 01402; 64447; 76942

== ENCOUNTER 2022-02-14 09:57 | Inpatient (IN) | payer BC ==
[2022-02-14] MEDS ORDERED: Furosemide 40 MG/4 ML VIAL IVPUSH ONE (11:01)
[2022-02-14] MEDS ORDERED: Ondansetron 4 MG/2 ML SDV IV PRN (12:43)
[2022-02-14] MEDS ORDERED: Melatonin 3 MG Tab PO PRN (13:29)
[2022-02-14] MEDS ORDERED: Potassium Chloride 20 MEQ Tab.ER PO SCH (13:30)
[2022-02-14] MEDS: HYDROmorphone 0.5 MG/0.5 ML Syringe IVPUSH PRN ×2 (13:31→18:21)
[2022-02-14] MEDS: Furosemide 40 MG/4 ML VIAL IVPUSH SCH ×2 (18:20→20:24)
[2022-02-14] MEDS: Potassium Chloride 20 MEQ Tab.ER PO SCH (18:20)
[2022-02-14] MEDS: Metoprolol Tartrate 100 MG Tab PO SCH (20:23)
[2022-02-14] MEDS: Apixaban 5 MG Tab PO SCH (20:24)
[2022-02-14] MEDS: oxyCODONE 5 MG Tab PO PRN (20:26)
[2022-02-14] MEDS ORDERED: Non-Formulary Medication 1 Each (Pravastatin 40 MG Tablet) PO SCH (21:00)
[2022-02-14] MEDS ORDERED: Apixaban 2.5 MG Tab PO SCH (21:00)
[2022-02-14] MEDS: Pravastatin 20 MG Tab PO SCH (21:22)
[2022-02-14] MEDS: Insulin Lispro 100 Unit/ML 3 ML KwikPen SUBCUT SCH (22:00)
[2022-02-15] MEDS: oxyCODONE 5 MG Tab PO PRN ×5 (00:28→22:04)
[2022-02-15] MEDS: QUEtiapine 100 MG Tab PO PRN ×2 (00:28→22:04)
[2022-02-15] MEDS: HYDROmorphone 0.5 MG/0.5 ML Syringe IVPUSH PRN ×3 (03:50→23:07)
[2022-02-15] MEDS: Furosemide 40 MG/4 ML VIAL IVPUSH SCH ×2 (06:22→14:16)
[2022-02-15] MEDS: Acetaminophen 325 MG Tab PO PRN (06:29)
[2022-02-15] MEDS: Metoprolol Tartrate 100 MG Tab PO SCH ×2 (09:00→20:28)
[2022-02-15] MEDS: Aspirin 81 MG Tab.Chew PO SCH (09:00)
[2022-02-15] MEDS ORDERED: Divalproex Sodium 500 MG Tab.ER PO SCH (09:00)
[2022-02-15] MEDS: Sertraline 50 MG Tab PO SCH (09:01)
[2022-02-15] MEDS: Tamsulosin 0.4 MG Cap.ER PO SCH (09:01)
[2022-02-15] MEDS: Diltiazem 240 MG Cap.ER PO SCH (09:01)
[2022-02-15] MEDS: Apixaban 5 MG Tab PO SCH (09:01)
[2022-02-15] MEDS: Potassium Chloride 20 MEQ Tab.ER PO SCH ×2 (09:01→20:29)
[2022-02-15] MEDS: Cyanocobalamin (Vitamin B12) 1,000 MCG Tab PO SCH (09:01)
[2022-02-15] MEDS: Insulin Lispro 100 Unit/ML 3 ML KwikPen SUBCUT SCH ×2 (09:06→11:26)
[2022-02-15] MEDS: Pravastatin 20 MG Tab PO SCH (20:27)
[2022-02-15] MEDS: Apixaban 2.5 MG Tab PO SCH (20:29)
[2022-02-16] MEDS: Furosemide 40 MG/4 ML VIAL IVPUSH SCH ×2 (06:39→14:10)
[2022-02-16] MEDS: Sertraline 50 MG Tab PO SCH (09:31)
[2022-02-16] MEDS: Aspirin 81 MG Tab.Chew PO SCH (09:31)
[2022-02-16] MEDS: Metoprolol Tartrate 100 MG Tab PO SCH ×2 (09:31→20:17)
[2022-02-16] MEDS: Tamsulosin 0.4 MG Cap.ER PO SCH (09:31)
[2022-02-16] MEDS: Potassium Chloride 20 MEQ Tab.ER PO SCH ×2 (09:32→20:14)
[2022-02-16] MEDS: Cyanocobalamin (Vitamin B12) 1,000 MCG Tab PO SCH (09:32)
[2022-02-16] MEDS: Acetaminophen 325 MG Tab PO PRN (09:33)
[2022-02-16] MEDS: Apixaban 2.5 MG Tab PO SCH ×2 (09:33→20:14)
[2022-02-16] MEDS: Diltiazem 240 MG Cap.ER PO SCH (09:33)
[2022-02-16] MEDS: oxyCODONE 5 MG Tab PO PRN ×3 (09:33→20:14)
[2022-02-16] MEDS: Divalproex Sodium 500 MG Tab.ER PO SCH (09:34)
[2022-02-16] MEDS: HYDROmorphone 0.5 MG/0.5 ML Syringe IVPUSH PRN (12:44)
[2022-02-16] MEDS: Cyclobenzaprine 10 MG Tab PO PRN ×2 (12:55→20:14)
[2022-02-16] MEDS: Pravastatin 20 MG Tab PO SCH (20:14)
[2022-02-17] MEDS: oxyCODONE 5 MG Tab PO PRN ×3 (00:21→09:18)
[2022-02-17] MEDS: Furosemide 40 MG/4 ML VIAL IVPUSH SCH ×2 (05:25→13:33)
[2022-02-17] MEDS: Cyclobenzaprine 10 MG Tab PO PRN (09:17)
[2022-02-17] MEDS: Tamsulosin 0.4 MG Cap.ER PO SCH (09:18)
[2022-02-17] MEDS: Metoprolol Tartrate 100 MG Tab PO SCH (09:18)
[2022-02-17] MEDS: Apixaban 2.5 MG Tab PO SCH (09:18)
[2022-02-17] MEDS: Potassium Chloride 20 MEQ Tab.ER PO SCH (09:18)
[2022-02-17] MEDS: Diltiazem 240 MG Cap.ER PO SCH (09:18)
[2022-02-17] MEDS: Cyanocobalamin (Vitamin B12) 1,000 MCG Tab PO SCH (09:19)
[2022-02-17] MEDS: Aspirin 81 MG Tab.Chew PO SCH (09:19)
[2022-02-17] MEDS: Sertraline 50 MG Tab PO SCH (09:19)
[2022-02-17] MEDS: Divalproex Sodium 500 MG Tab.ER PO SCH (09:20)
== END 2022-02-17 14:45 | disposition home or self-care (01) | DRG 194 ==
LOC: JD.ED 09:57 → JD.MS 12:43
PROVIDERS: ADMIT Hospitalist; ATTEND Hospitalist
DX: I13.0 Hypertensive heart and chronic kidney disease with heart failure and stage 1 through stage 4 chronic kidney disease, or unspecified chronic kidney disease (principal); I50.33 Acute on chronic diastolic (congestive) heart failure; J96.11 Chronic respiratory failure with hypoxia; N18.2 Chronic kidney disease, stage 2 (mild); I25.10 Atherosclerotic heart disease of native coronary artery without angina pectoris; J44.9 Chronic obstructive pulmonary disease, unspecified; G47.33 Obstructive sleep apnea (adult) (pediatric); E78.5 Hyperlipidemia, unspecified; E66.01 Morbid (severe) obesity due to excess calories; F32.A Depression, unspecified; E78.00 Pure hypercholesterolemia, unspecified; F41.9 Anxiety disorder, unspecified; G47.00 Insomnia, unspecified; I27.20 Pulmonary hypertension, unspecified; D50.9 Iron deficiency anemia, unspecified; I48.91 Unspecified atrial fibrillation; Z96.652 Presence of left artificial knee joint; Z90.49 Acquired absence of other specified parts of digestive tract; Z95.5 Presence of coronary angioplasty implant and graft; Z86.010 Personal history of colon polyps; Z79.82 Long term (current) use of aspirin; Z79.899 Other long term (current) drug therapy; Z68.42 Body mass index [BMI] 45.0-49.9, adult; Z87.891 Personal history of nicotine dependence
CPT/HCPCS: 36415; 71045; 71045-26; 73562-26-LT; 73562-LT; 80048; 80053; 82947; 83735; 83880; 84484; 85025; 85027; 85610; 93005; 93306; 93970; 93970-26; 96374; 96375; 97110-GP; 97116-GP; 97162-GP; 99285-25; A9270-GY; J1170; J1940

== ENCOUNTER 2022-11-22 06:25 | Day surgery (SDC) | payer BC ==
[2022-11-22] MEDS ORDERED: Midazolam 1 MG/ML 2 ML SDV ONE (06:59)
[2022-11-22] MEDS ORDERED: ceFAZolin 2 GM Vial ONE (06:59)
[2022-11-22] MEDS ORDERED: Propofol 200 MG/20 ML SDV ONE (06:59)
[2022-11-22] MEDS ORDERED: Dexmedetomidine 200 MCG/2 ML SDV ONE (07:04)
[2022-11-22] MEDS ORDERED: Ropivacaine 0.5% 5 MG/ML 30 ML SDV ONE (07:06)
[2022-11-22] MEDS ORDERED: EPINEPHrine 1 MG/ML SDV ONE (07:06)
[2022-11-22] MEDS ORDERED: HYDROmorphone 0.5 MG/0.5 ML Syringe IVPUSH PRN (07:42)
[2022-11-22] MEDS ORDERED: fentaNYL 100 MCG/2 ML SDV IVPUSH PRN (07:42)
[2022-11-22] MEDS ORDERED: Ondansetron 4 MG/2 ML SDV IVPUSH PRN (07:42)
[2022-11-22] MEDS ORDERED: ePHEDrine 50 MG/ML SDV ONE (08:40)
[2022-11-22] MEDS ORDERED: Phenylephrine HCl In 0.9% NaCl 1 MG/10 ML Vial ONE ×2 (09:07→09:39)
[2022-11-22] MEDS ORDERED: Lactated Ringers 1,000 ML ONE (09:08)
[2022-11-22] MEDS: Morphine 8 MG, EPINEPHrine 0.3 MG, Cefuroxime 750 MG, Ketorolac 30 MG, Sodium Chloride ... PRN ×10 (09:43→10:48)
[2022-11-22] MEDS: Vancomycin 1 GM SDV ONE ×2 (09:51→10:48)
[2022-11-22] MEDS: Tranexamic Acid 1,000 MG/10 ML Vial ONE ×2 (09:51→10:48)
[2022-11-22] MEDS ORDERED: oxyCODONE 5 MG Tab PO PRN (13:43)
== END 2022-11-22 13:58 | disposition home or self-care (01) ==
LOC: JD.SDS 06:25
PROVIDERS: ATTEND Orthopaedic Surgery
DX: M17.11 Unilateral primary osteoarthritis, right knee (principal); I25.10 Atherosclerotic heart disease of native coronary artery without angina pectoris; I11.0 Hypertensive heart disease with heart failure; I50.32 Chronic diastolic (congestive) heart failure; E78.00 Pure hypercholesterolemia, unspecified; G47.33 Obstructive sleep apnea (adult) (pediatric); K21.9 Gastro-esophageal reflux disease without esophagitis; N40.0 Benign prostatic hyperplasia without lower urinary tract symptoms; F32.A Depression, unspecified; E66.01 Morbid (severe) obesity due to excess calories; E11.65 Type 2 diabetes mellitus with hyperglycemia; J96.91 Respiratory failure, unspecified with hypoxia; F41.1 Generalized anxiety disorder; D50.9 Iron deficiency anemia, unspecified; Z79.899 Other long term (current) drug therapy; Z98.84 Bariatric surgery status; Z95.5 Presence of coronary angioplasty implant and graft; Z98.890 Other specified postprocedural states; Z79.82 Long term (current) use of aspirin
CPT/HCPCS: 0055T; 27447; 64447; 73560; 97110; 97161; A9270; C1713; C1776; J0171; J0690; J0697; J1885; J2250; J2270; J2704; J2795; J3370; J7120; 01402; 64450; J3490